=== PATIENT | male | born 1945 | race Caucasian/White ===

== ENCOUNTER 2017-12-17 12:54 | Inpatient (IN) | payer OTHER, MEDICARE ==
[~2017-12-17] VITALS: Ht 167.6 cm; Wt 93.9 kg
--- NOTE | 2017-12-17 15:34 | ED GI/GU/ABDOMINAL COMPLAINT ---
History of Present Illness General Chief Complaint: General Adult Stated Complaint: BLOOD IN STOOL Source: patient, family Exam Limitations: no limitations Vital Signs & Intake/Output Vital Signs & Intake/Output Vital Signs Date Time Temp Pulse Resp B/P B/P Pulse O2 O2 Flow FiO2 Mean Ox Delivery Rate 12/18 0647 98.1 70 18 158/82 96 Room Air 12/17 2147 98.2 69 20 146/60 97 Room Air 12/17 2111 70 20 126/72 97 12/17 1721 98.0 72 18 118/80 96 Room Air 12/17 1615 98 Room Air 12/17 1555 70 18 118/82 98 Room Air 12/17 1316 98.0 116 18 133/91 95 Room Air ED Intake and Output 12/18 0000 12/17 1200 Intake Total 100 Output Total Balance 100 Intake, Oral 100 Patient 200 lb Weight Weight Reported by Patient Measurement Method Triage Note: 72M REPORTS 3 EPISODES OF SOFT BM WITH BRB LAST NIGHT WITH HX OF EXTERNAL HEMERRHOIDS. DENIES KNOWLEDGE OF ANY INTERNAL HEMERRHOIDS. STATES NO BLOOD ASIDE FROM AT TIME OF DEFACATION. DENIES RECTAL OR ABDOMINAL PAIN OR NAUSEA. DENIES HEADACHE, DIZZINESS, LETHARGY, OR LIGHTHEADEDNESS. ORTHOS NEGATIVE IN TRIAGE Triage Nurses Notes Reviewed? yes HPI: 72 yo M PMH HTN, HLD presenting with bloody stools. Dark maroon and bright red blood mixed with loose stools starting last night, significant blood in toilet bowl x 4, last BM this morning around 10:00. Denies assocaited dizziness, chest pain, SOB, abdominal pain, N/V/C, urinary Sx. Patient states that he has a history of hemorrhoids with only mild bleeding on toilet paper, usually associated with rectal pain (which the patient does not endorse). (Veronica MCFARLANE,Robert) Allergies Coded Allergies: amoxicillin (Mild, RASH 12/18/17) Reconcile Medications Allopurinol 100 MG TABLET 1 TAB PO DAILY GOUT (Reported) Amlodipine Besylate 5 MG TABLET 1 TAB PO DAILY BP (Reported) Dutasteride 0.5 MG CAPSULE 1 CAP PO DAILY PROSTRATE (Reported) Metoprolol Succinate 50 MG TAB.ER.24H 1 TAB PO DAILY BP (Reported) Rosuvastatin Calcium (Crestor) 20 MG TABLET 1 TAB PO DAILY HLD (Reported) (Roque Godinez MD) Past History Travel History Traveled to [place] past 21 day No Medical History Any Pertinent Medical History? see below for history Neurological: NONE EENT: NONE Cardiovascular: hypertension, hyperlipidemia Respiratory: NONE Gastrointestinal: HEMERRHOIDS Hepatic: NONE Renal: NONE Musculoskeletal: NONE Psychiatric: NONE Endocrine: NONE Surgical History Surgical History: none Psychosocial History What is your primary language Guyanese Tobacco Use: Quit >30 days ago Daily Tobacco Use Amount/Type: =< 4 Cigarettes daily Family History Hx Contributory? Yes (Robert Martin MD) Review of Systems Review of Systems Constitutional: Reports: no symptoms. EENTM: Reports: no symptoms. Respiratory: Reports: no symptoms. Cardiovascular: Reports: no symptoms. GI: Reports: see HPI. Genitourinary: Reports: no symptoms. Musculoskeletal: Reports: no symptoms. Skin: Reports: no symptoms. Neurological/Psychological: Reports: no symptoms. Hematologic/Endocrine: Reports: no symptoms. Immunologic/Allergic: Reports: no symptoms. All Other Systems: Reviewed and Negative (Robert Martin MD) Physical Exam Physical Exam General Appearance: well developed/nourished, no apparent distress, alert, awake Head: atraumatic Eyes: Bilateral: PERRL, EOMI. Ears, Nose, Throat, Mouth: moist mucous membrane Neck: normal inspection, full range of motion Respiratory: normal breath sounds, lungs clear Cardiovascular: regular rate/rhythm Gastrointestinal: soft, non-tender Rectal: bloody stool Comments: AbdomenL: Soft and non-TTP throughout Rectal: Dark maroon guiaiac positive stool, no massess palpated in rectal vault Core Measures ACS in differential dx? No Sepsis Present: No Sepsis Focused Exam Completed? No (Robert Martin MD) Progress Differential Diagnosis: AAA, AMI, appendicitis, biliary colic, bowel obstruction , colon cancer, cholecystitis, diverticulitis, epididymitis, esophageal varices, gastritis, hepatitis, hernia, hemorrhoids, ischemic bowel, inflamm bowel dis, Peyton-Nathalia tear, orchitis, pancreatitis, prostatitis, peptic ulcer, PUD/GERD, perforated viscous, pyelonephritis, SBO, STD, testicular torsion, ureterolithiasis, urinary retention, urethritis, UTI/pyelo Plan of Care: Orders Procedure Date/time Status CBC WITHOUT DIFFERENTIAL 12/18 0600 Active Clear Liquid Diet 12/17 D Active Weight 05/05 2143 Active Vital Signs 12/17 2142 Active Teach/Educate 12/17 2142 Active Pain Treatment and Response 12/17 2142 Active Nutritional Intake, Monitor 12/17 2142 Active Isolation 12/17 2142 Active Intake & Output 12/17 2142 Active Patient Care Conference 12/17 2142 Active Activity/Ambulation 12/17 2142 Active Pathway - chart 12/17 2041 Active House Staff 12/17 2041 Active Patient Data 12/17 2041 Active Code Status 12/17 2041 Active Patient Data 12/17 2036 Active Saline Lock 12/17 2006 Active Misc Message 12/17 2006 Active ED Holding Orders 12/17 2006 Active Vital Signs 12/17 2006 Active Code Status 12/17 2006 Complete URINE CREATININE, SPOT 12/17 183 Complete Admit to inpatient 12/17 182 Active PROTHROMBIN TIME 12/17 153 Complete HEPATIC FUNCTION PANEL 12/17 153 Complete CBC WITHOUT DIFFERENTIAL 12/17 153 Complete BASIC METABOLIC PANEL 12/17 153 Complete EKG 12/17 153 Active TYPE & SCREEN (NOT X-MATCH) 12/17 153 Complete Intake & Output 12/17 1318 Active VTE Mechanical Prophylaxis 12/17 UNK Active Current Medications Sig/Digna Start time Last Medication Dose Stop Time Status Admin Allopurinol 100 MG DAILY 12/18 899 AC (Zyloprim) Amlodipine Besylate 5 MG DAILY 12/18 899 AC (Norvasc) Atorvastatin Calcium 40 MG DAILY 12/18 899 AC (Lipitor) Metoprolol Succinate 50 MG DAILY 12/18 899 AC (Toprol Xl) Sodium Chloride 1,000 ML Q13H 12/18 0030 AC 12/18 (Normal Saline 0.9%) 0051 Acetaminophen 325 MG Q6 PRN 12/17 2044 AC (Tylenol) Laboratory Tests 12/17/172036: Ur Random Creatinine 61.6 12/17/17 1550: Anion Gap 13, Estimated GFR > 60, BUN/Creatinine Ratio 17.8, Glucose 103 H, Calcium 8.9, Total Bilirubin 0.5, Direct Bilirubin 0.2, AST 19, ALT 31, Alkaline Phosphatase 64, Total Protein 6.7, Albumin 4.2, PT 11.8, INR 1.08, CBC w Diff NO MAN DIFF REQ, RBC 3.89 L, MCV 99.7 H, MCH 33.2 H, MCHC 33.3, RDW 15.1 H, MPV 6.6 L, Gran % 67.8, Lymphocytes % 24.8, Monocytes % 5.4, Eosinophils % 1.4, Basophils % 0.6, Absolute Granulocytes 4.3, Absolute Lymphocytes 1.6, Absolute Monocytes 0.3, Absolute Eosinophils 0.1, Absolute Basophils 0 Physician MDM: 72 yo M PMH HTN, HLD presenting with bloody stools. Tachycardic in triage to 110s, orthostatic (HR 120s with standing), HR 90s while laying in bed during exam, abdomen benign, rectal exam as above with dark maroon stool. DDx: Lower GIB (diverticulosis, AVM), Rectal bleeding (internal hemorrhoids), UGIB (PUD, no Hx concerning for varicies). Protonix 80 mg IV given. CBC with Hgb 12.9, unknown baseline. Given orthostasis and anemia with presumed active ongoing GIB, will admit for monitoring and serial Hgbs. I discussed the case with Dr. Redmond who feels that endoscopy is warranted (though not emergently), requested clear liquid diet, please contact him with any clincal instability or worsening bleeding. Admit to hospitalist. Initial ED EKG: NSR (Veronica MCFARLANE,Robert) Departure Departure Disposition: STILL A PATIENT Condition: Stable Clinical Impression Primary Impression: GIB (gastrointestinal bleeding) Referrals: Colten Rowland MD (PCP/Family) Departure Forms: Customer Survey General Discharge Information Admission Note Spoke With: Nadine Lanza MD Documentation of Exam: Documentation of any treatments & extenuating circumstances including Concerns Regarding Discharge (functional status, medication knowledge or non-compliance, living conditions, etc.) that warrant an admission rather than observation: [ Patient presents with multiple bloody bowel movements since yesterday evening with no history of GI bleeding or anticoagulation, the patient was found to be tachycardic and orthostatic, with anemia on his lab work, and ongoing GI bleeding based on his rectal exam, patient requires admission to the hospital for COPD hemoglobin's, close hemodynamic monitoring, gastroenterology consult, and possible endoscopy. If the patient were discharged without monitoring and further evaluation he has a high likelihood of progressive bleeding with anemia, cardiovascular collapse, and possibly .] (Robert Martin MD) Resident Co-Sign Statement Statement: ED Attending supervision documentation- I saw and evaluated the patient. I have also reviewed all the pertinent lab results and diagnostic results. I agree with the findings and the plan of care as documented in the Resident's documentation. x I have reviewed the ED Record and agree with the Resident's documentation. Additions or exceptions (if any) to the Resident's note and plan are summarized below: [] (Herbert MCFARLANE,Roque) ED Attending Observation Initial Observation Note: I have seen and personally examined SHARONDA WEISS on 12/17/17 at 1852. I agree with the current emergency department documentation. The disposition (admission or discharge) is uncertain at this time, he needs a period of observation for the following reason(s): The ED Nurse caring for this patient has been personally informed as to what the patient is being observed for. (Veronica MCFARLANE,Robert)
[2017-12-17 16:12] LABS: ABSOLUTE BASOPHIL COUNT 0 /CUMM (0.0-0.2); ABSOLUTE EOSINOPHIL COUNT 0.1 /CUMM (0.0-0.7); ABSOLUTE GRANULOCYTE CT 4.3 /CUMM (1.4-6.5); ABSOLUTE LYMPH COUNT 1.6 /CUMM (1.2-3.4); ABSOLUTE MONOCYTE COUNT 0.3 /CUMM (0.10-0.60); BASOPHIL % 0.6 % (0.0-2.0); EOSINOPHIL % 1.4 % (0-5); GRANULOCYTE % 67.8 % (42.2-75.2); HEMATOCRIT 38.8 % (42-52); MEAN CORPUSCULAR HGB 33.2 PG (27.0-31.0); MEAN CORPUSCULAR HGB CONC 33.3 G/DL (33.0-37.0); MEAN CORPUSCULAR VOLUME 99.7 FL (80.0-94.0); MEAN PLATELET VOLUME 6.6 FL (7.4-10.4); PLATELET COUNT 199 /CUMM (130-400); RBC DISTRIBUTION WIDTH 15.1 % (11.5-14.5); RED BLOOD CELL CT 3.89 /CUMM (4.70-6.10); WHITE BLOOD CELL COUNT 6.3 /CUMM (4.8-10.8)
[2017-12-17 16:20] LABS: PT 11.8 SEC (9.4-12.5)
--- NOTE | 2017-12-17 20:44 | History & Physical ---
Miryam Yeager 12/17/172034: General Information and HPI MD Statement: I have seen and personally examined SHARONDA WEISS and documented this H&P. The patient is a 72 year old M who presented with a patient stated chief complaint of [GI Bleed]. Source of Information: patient, old records Exam Limitations: no limitations History of Present Illness: Mr. Mcdonnell is a 72yo M w/ PMH of hypertension, hyperlipidemia, gout, dilated ascending aorta, presented with BRBPR. Patient started having dark maroon, and bright red blood mixed with loose stool starting last night, was positive history of external hemorrhoids, however denied any internal hemorrhoids history, with a total of 4 episodes of bloody bowel movements. Last bowel bowel movement was around 10 AM prior to this admission. Patient had never had any bright blood in his stool, and endorsed only once or twice a year painful defecation due to external hemorrhoids. Patient had last colonoscopy done 12 years ago without any remarkable findings. Patient stated that the first bowel movement was bright red blood was solid, and the next 3 become increasingly loose with more liquid, however denies any dark or tarry stool. Patient denies any sick contacts/fever/shortness of breath/lightheadedness/ abdominal pain/change of diet/outside foods or anyone around with similar symptoms. During our clinical interaction, patient denied Chest Pain/Palpitation/exercise intolerance/Abdominal pain/bowel movement/urinary abnormality, or other skin/ musculoskeletal/neurological disorders/mood change/insomnia/dietary/appetite change. -Smoking: Quit 8 years ago -Alcohol: Social alcohol use, with one episode of alcohol detox at [facility] in 2012. -Rec Drugs: Denies Allergies/Medications Home Med list Allopurinol 100 MG TABLET 1 TAB PO DAILY GOUT (Reported) Amlodipine Besylate 5 MG TABLET 1 TAB PO DAILY BP (Reported) Dutasteride 0.5 MG CAPSULE 1 CAP PO DAILY PROSTRATE (Reported) Metoprolol Succinate 50 MG TAB.ER.24H 1 TAB PO DAILY BP (Reported) Rosuvastatin Calcium (Crestor) 20 MG TABLET 1 TAB PO DAILY HLD (Reported) Past History Travel History Traveled to [place] past 21 day No Medical History Neurological: NONE EENT: NONE Cardiovascular: hypertension, hyperlipidemia Respiratory: NONE Gastrointestinal: HEMERRHOIDS Hepatic: NONE Renal: NONE Musculoskeletal: NONE Psychiatric: NONE Endocrine: NONE Surgical History Surgical History: none Past Family/Social History Functional Ability ADLs Independent: dressing, eating, toileting, bathing. Ambulation: independent IADLs Independent: shopping, housework, finances, food prep, telephone, transportation , medication admin. Review of Systems Review of Systems Constitutional: Reports: see HPI. Exam & Diagnostic Data Last 24 Hrs of Vital Signs/I&O Vital Signs Date Time Temp Pulse Resp B/P B/P Pulse O2 O2 Flow FiO2 Mean Ox Delivery Rate 12/17 2111 70 20 126/72 97 12/17 1721 98.0 72 18 118/80 96 Room Air 12/17 1615 98 Room Air 12/17 1555 70 18 118/82 98 Room Air 12/17 1316 98.0 116 18 133/91 95 Room Air Intake & Output 12/17 1600 12/17 0800 12/17 0000 Intake Total Output Total Balance Patient 90.718 kg Weight Weight Reported by Patient Measurement Method Physical Exam General Appearance Alert, Oriented X3, Cooperative, No Acute Distress Skin No Rashes, No Breakdown, No Significant Lesion Skin Temp/Moisture Exam: Warm/Dry Sepsis Skin Exam (color): Normal for Ethnicity HEENT Atraumatic Neck Supple Cardiovascular Regular Rate, Normal S1, Normal S2 Lungs Clear to Auscultation, Normal Air Movement Abdomen Normal Bowel Sounds, Soft, No Tenderness, No Hepatospenomegaly, possible umbilical hernia w/ portruding umbilicus Neurological Normal Gait, Normal Speech, Strength at 5/5 X4 Ext Extremities No Cyanosis, Normal Pulses, trace edema Rectal No Fissures, external hemorrhoids with no red blood. no tenderness during exam. guiac positive Last 24 Hrs of Labs/Jean: Laboratory Tests 12/17/172036: Ur Random Creatinine 61.6 12/17/17 1550: Anion Gap 13, Estimated GFR > 60, BUN/Creatinine Ratio 17.8, Glucose 103 H, Calcium 8.9, Total Bilirubin 0.5, Direct Bilirubin 0.2, AST 19, ALT 31, Alkaline Phosphatase 64, Total Protein 6.7, Albumin 4.2, PT 11.8, INR 1.08, CBC w Diff NO MAN DIFF REQ, RBC 3.89 L, MCV 99.7 H, MCH 33.2 H, MCHC 33.3, RDW 15.1 H, MPV 6.6 L, Gran % 67.8, Lymphocytes % 24.8, Monocytes % 5.4, Eosinophils % 1.4, Basophils % 0.6, Absolute Granulocytes 4.3, Absolute Lymphocytes 1.6, Absolute Monocytes 0.3, Absolute Eosinophils 0.1, Absolute Basophils 0 Diagnostic Data EKG Results NSR Assessment/Plan Assessment: On admission, Vitals: Stable afebrile, pulse 72, BP 108/80, 96% on room air, however orthostatic positive for increasing pulse when standing up. -CBC: No leukocytosis, H/H 12.9/48.8 dropped from 2013 baseline, PLT 199, PT/INR 11.8/1.08 -BMP: Unremarkable -EKG: NSR w/o significant ST-T abnormalities. -Interventions in ER: PPI 80 mg 1 Problem list & Assessment: Patient presented with BRBPR with PMH of external hemorrhoids, positive orthostatics, guaiac positive rectal exam, however, otherwise negative physical examination or complaining of fever/chills/Chest pain/ab pain/negative previous colonoscopy. #BRBPR secondary to hemorrhoids pending rule out other etiology #Orthostatic positive #Normacytic anemia likely from recent GI bleed #Umbilic hernia #PMH of hypertension, hyperlipidemia, dilated ascending aorta, gout Hospital Course: - Admit to general medicine floor bleeding. DVT prophylaxis ALPS Clear Liquid Diet with no red Full Code As Ranked By This Provider Problem List: 1. GIB (gastrointestinal bleeding) Core Measures/Misc (05/01) Acute Coronary Syndrome ACS Diagnosis: No Congestive Heart Failure Congestive Heart Failure Diagnosis No Cerebrovascular Accident CVA/TIA Diagnosis: No VTE (View Protocol) VTE Risk Factors Age>40 No Mechanical VTE Prophylaxis d/t N/A MechProphylax Ordered No VTE Pharm Prophylaxis d/t Bleeding (Active) Sepsis (View protocol) Sepsis Present: No Eren Irizarry 12/18/17 0059: General Information and HPI Allergies/Medications Allergies: Coded Allergies: amoxicillin (Mild, RASH 12/18/17) Resident Review Statement Resident Statement: examined this patient, discussed with business analytics intern Other Findings: Patient is 72-year-old male with past medical history of hypertension, hyperlipidemia, gout, dilated ascending to, who presented to the ER with a chief complaint of bright red blood per rectum. Patient reported that he started having some dark blood along with fresh bright red blood in stool since yesterday night. Had 4 episodes of bloody bowel movements. He has a history of external hemorrhoids. No previous history of bleeding in stools. Denies any chest pain, palpitations, nausea, vomiting, lightheadedness, dizziness or abdominal pain. Admits to having loose stools for the past few days. Denies any NSAID use, iron intake, food from outside, sick contacts or antibiotic use. Had a colonoscopy about 12 years ago which was unremarkable. He is an ex-smoker, social alcohol use, no drug abuse. Patient was tachycardic in the ED, orthostatic positive(heart rate 120 on standing) with dark guaiac-positive stools on rectal bleeding. Vitals in the ED at admission : Temperature 90.8, pulse 160, respiration 18, blood pressure 130/91, saturating 95% on room air Labs significant for H&H of 12.9/38.8(last 14.5 in 2012) No significant EKG changes Physical exam General: Awake, alert, oriented, no distress HEENT"PERRLA, EOMI Chest: Clear breath sounds bilaterally CVS: S1 and S2 heard, no murmurs Abdomen: Umbilical hernia, tense, no tenderness Extremities: Trace bilateral pedal edema Assessment Bright red blood per rectum? Hemorrhoids /diverticular bleed/AVM Rectal bleed likely hemorrhoids ?Upper GI bleed Acute blood loss anemia Orthostatic positive History of gout Hypertension/hyperlipidemia Dilated ascending aorta Plan Admit to [facility] Vitals per protocol 2 wide bore IVs at all times Frequent CBC's Type and screen, cross match Transfuse to keep hemoglobin above 7 IV hydration with normal saline at 75 cc an hour Clear liquid diet GI consult in a.m. case discussed with Dr. Redmond, who plans an endoscopy/ colonoscopy though not emergently. Notify GI stat if any further episodes of bleeding Continue other home medications Full code DVT prophylaxis Nadine Perez 12/18/17 0557: Attending MD Review Statement Attending Statement Attending MD Statement: examined this patient, discuss w/resident/PA/CODING EDUCATOR, agreed w/resident/PA/CODING EDUCATOR, reviewed EMR data (avail), reviewed images, amended to note Attending Assessment/Plan: CC: BRBPR PMH: HTN, HLD, gout, BPH Patient came to ER for 4 episodes of bright red blood per rectum, 3 episodes last night and one episode this morning. He could not quantify the blood as it was mixed with stool and was in the commode. He did not have any abdominal pain before the episode and did not have tenesmus. He did not feel dizzy or palpitation after the episodes. He has a history of external hemorrhoids and occasionally gets blood on wipes but this was different for him and never happened in the past. His last colonoscopy was 12 year back, unaware of findings. Otherwise complete ROS unremarkable. No significant family history of colon cancer Vitals: Temperature 98.0, pulse 116 on arrival improved to 70, RR 18, blood pressure 133/91, saturation 95% on room air. Orthostatics positive for tachycardia only On exam: A O 3, cooperative, no acute distress, neck supple, JVD normal, no lymphadenopathy, mucosa moist, no focal neurological deficit, no dependent edema , no obvious skin rashes or inflammation CVS: S1-S2, RRR. RS: Clear to auscultate bilaterally. Abdomen: Soft, NT, ND, bowel sounds present. Assessment and plan 72-year-old male with above-mentioned past medical history presented in ER for bright red blood per rectum, 4 episodes, not associated with pain, 2 of the bowel movements were watery but does not have any nausea, vomiting, tenesmus. Never had similar symptoms in the past. He has hemorrhoids and occasionally gets a blood on wipes but never had similar symptoms in the past. Last colonoscopy 12 year back. Denies any NSAID use, anticoagulation use. His hemoglobin is 12.9, MCV 99, baseline not known. Otherwise labs unremarkable. This could be hemorrhoidal bleeding but at the same time diverticular bleeding or any polyps should be ruled out. Rectal examination done by ER physician showed melena and done by resident showed FOBT positive but no melena. Lay Out Technician was called who suggested clears for now, they will evaluate for colonoscopy in a.m. patient wants to go home and schedule colonoscopy outpatient if it's not urgently required. + BRBPR + History of HTN, HLD, gout, BPH - Admit to general medicine - Continue gentle hydration - Continue clear liquids - Continue IV Protonix twice a day - GI consult in a.m., call GI immediately if patient has any bloody bowel movement while in hospital - Type and screen 2 units PRBC - 2 wide bore peripheral IV lines - Repeat CBC and BMP in a.m. - Hold oral antihypertensives, continue rest of his medications, hold aspirin for now
[2017-12-17] MEDS ORDERED: AMLODIPINE BESYL5 M1 PO (20:55)
[2017-12-17] MEDS ORDERED: ALLOPURINOL100 M1 PO (20:55)
[2017-12-17] MEDS ORDERED: METOPROLOL SUCC50 M2 PO (20:56)
[2017-12-17] MEDS ORDERED: CRESTOR20 M2 PO (20:56)
[2017-12-17] MEDS ORDERED: DUTASTERIDE0.5 MG PO (20:59)
[2017-12-17 21:47] VITALS: BP 146/60
--- NOTE | 2017-12-18 05:58 | Admission Certification ---
Admission Certification Certification Statement - As attending physician, I certify that at the time of - admission, based on clinical presentation, severity of - symptoms, need for further diagnostic testing and - therapeutic interventions, and risk of adverse outcomes - without in-hospital treatment, in my clinical assessment, - this patient requires an acute hospital stay for a minimum - of two nights or longer. I have also considered psychsocial - factors such as support system, advanced age, financial - issues, cognitive issues, and failed out-patient treatments, - past re-admission history, safety of patient, and lack of - compliance as applicable. Specific rationale supporting this admission is: BRBPR
[2017-12-18 06:47] VITALS: BP 158/82
[2017-12-18 08:57] LABS: ABSOLUTE BASOPHIL COUNT 0 /CUMM (0.0-0.2); ABSOLUTE EOSINOPHIL COUNT 0.1 /CUMM (0.0-0.7); ABSOLUTE LYMPH COUNT 1.1 /CUMM (1.2-3.4); ABSOLUTE MONOCYTE COUNT 0.3 /CUMM (0.10-0.60)
[2017-12-18 09:09] LABS: ABSOLUTE GRANULOCYTE CT 1.6 /CUMM (1.4-6.5); BASOPHIL % 0.6 % (0.0-2.0); EOSINOPHIL % 3.5 % (0-5); GRANULOCYTE % 52.7 % (42.2-75.2); MEAN CORPUSCULAR HGB 33.5 PG (27.0-31.0); MEAN CORPUSCULAR HGB CONC 33.9 G/DL (33.0-37.0); MEAN CORPUSCULAR VOLUME 98.8 FL (80.0-94.0); MEAN PLATELET VOLUME 6.8 FL (7.4-10.4); PLATELET COUNT 152 /CUMM (130-400); RED BLOOD CELL CT 3.42 /CUMM (4.70-6.10)
[2017-12-18 09:18] LABS: HEMATOCRIT 33.8 % (42-52); WHITE BLOOD CELL COUNT 3.1 /CUMM (4.8-10.8)
--- NOTE | 2017-12-18 11:40 | PN- Housestaff ---
[facility]: Subjective Follow-up For: Bleeding per rectum Subjective: No overnight events. Patient remained afebrile. Seen and examined this morning. He denied any chest pain, palpitation, nausea, vomiting, chills, fever , short of breath, abdominal pain. Patient didn't have bowel movement this morning. He is having clear liquid diet and he is tolerating it. We will keep patient nothing by mouth for tomorrow for colonoscopy. Review of Systems Constitutional: Denies: chills, fever. EENTM: Reports: no symptoms. Cardiovascular: Denies: chest pain, palpitations. Respiratory: Denies: cough, short of breath, sputum production. Gastrointestinal: Denies: abdominal pain, diarrhea, melena, nausea, vomiting. Genitourinary: Reports: no symptoms. Neurological/Psychological: Reports: no symptoms. Objective Last 24 Hrs of Vital Signs/I&O Vital Signs Date Time Temp Pulse Resp B/P B/P Pulse O2 O2 Flow FiO2 Mean Ox Delivery Rate 12/18 0647 98.1 70 18 158/82 96 Room Air 12/17 2147 98.2 69 20 146/60 97 Room Air / 2111 70 20 126/72 97 05/05 1721 98.0 72 18 118/80 96 Room Air 05/ 1615 98 Room Air 05/ 1555 70 18 118/82 98 Room Air 05/05 1316 98.0 116 18 133/91 95 Room Air Intake & Output / 1600 05/06 0800 05/06 0000 Intake Total 700 100 Output Total Balance 700 100 Intake, IV 400 Intake, Oral 300 100 Patient 199 lb 200 lb Weight Weight Bed scale Reported by Patient Measurement Method Physical Exam General Appearance: Alert, Oriented X3, Cooperative Skin Temp/Moisture Exam: Warm/Dry Sepsis Skin Exam (color): Normal for Ethnicity HEENT: Atraumatic, PERRLA, EOMI Neck: Supple Cardiovascular: Normal S1, Normal S2 Lungs: Clear to Auscultation Abdomen: Soft, No Tenderness Neurological: Normal Speech, Strength at 5/5 X4 Ext, Normal Tone Extremities: No Edema Assessment/Plan Assessment: 72-year-old male with past medical history of hypertension, hyperlipidemia, gout , dilated ascending to, who presented to the ER with a chief complaint of bright red blood per rectum. seeing the patient following problems: Fresh blood per rectum: -Patient had 4 episodes of bleeding per rectum without pain. -Patient is hemodynamically stable. -His H&H is 11.5/33.8 -We will keep monitoring his H&H -Patient started to have bleeding again we will give him blood transfusion and call GI. -Continue gentle IV hydration as patient was having positive orthostatics. -We'll keep the patient nothing by mouth midnight for colonoscopy tomorrow -Follow-up GI recommendations History of hypertension hyperlipidemia: -Continue metoprolol and amlodipine -Continue Lipitor History of Gout: -Continue allopurinol DVT prophylaxis: Mechanical only considering his bleeding per rectum CODE STATUS: Full code Problem List: 1. GIB (gastrointestinal bleeding) Pain Ratin Pain Location: none Pain Goal: Remain pain free Pain Plan: pain pathway Tomorrow's Labs & Rationales: cbc/bep ReaganMelody johnson 12/18/17 1331: Attending MD Review Statement Attending Statement Attending MD Statement: examined this patient, discuss w/resident/PA/BRASS BURNISHER, agreed w/resident/PA/BRASS BURNISHER, discussed with family, reviewed EMR data (avail), discussed with nursing, discussed with case mgmt, reviewed images, amended to note Attending Assessment/Plan: Admit for GI bleed BRBPR, clear liquid diet as per GI. Plan for colonscopy tomorrow as per GI. Serial cbc monitoirng, iv ppi, gi/dvt prophylaxis
[2017-12-18 15:19] VITALS: BP 122/70
--- NOTE | 2017-12-18 15:54 | Cons- Gastroenterology ---
General Information and HPI Consulting Request Date of Consult: 12/18/17 (MD AGUS/GASTROENTEROLOGY) Requested By: Nadine Lanza MD Reason for Consult: Hematochezia Source of Information: patient History of Present Illness: The patient has no significant GI history or chronic/recurrent symptoms. Specifically, there is no previous GI bleed (aside for some blood occasionally on toilet paper attributed to hemorrhoids), chronic abdominal pain, dyspepsia, nausea, heartburn. His bowel habits are regular and without recent change. He takes a baby aspirin a day, but no NSAIDs, anticoagulants or other antiplatelet agents. He had a screening colonoscopy in 2003, demonstrating sigmoid diverticulosis and no polyps. No known family history of GI malignancy. The night before last the patient had 3 bloody bowel movements. He had a fourth smaller one yesterday morning. Since that time he has passed gas but no bowel movement or blood. There has been no pain, nausea, vomiting, diaphoresis, dizziness, lightheadedness, syncope, shortness of breath or chest pain. Allergies/Medications Allergies: Coded Allergies: amoxicillin (Mild, RASH 12/18/17) Home Med List: Allopurinol 100 MG TABLET 1 TAB PO DAILY GOUT (Reported) Amlodipine Besylate 5 MG TABLET 1 TAB PO DAILY BP (Reported) Dutasteride 0.5 MG CAPSULE 1 CAP PO DAILY PROSTRATE (Reported) Metoprolol Succinate 50 MG TAB.ER.24H 1 TAB PO DAILY BP (Reported) Rosuvastatin Calcium (Crestor) 20 MG TABLET 1 TAB PO DAILY HLD (Reported) Current Medications: Current Medications Sig/Digna Start time Last Medication Dose Route Stop Time Status Admin Acetaminophen 325 MG Q6 PRN 12/17 2045 AC PO Allopurinol 100 MG DAILY 12/18 899 AC 12/18 PO 0829 Amlodipine Besylate 5 MG DAILY 12/18 899 AC 12/18 PO 0830 Atorvastatin Calcium 40 MG DAILY 12/18 899 AC 12/18 PO 0830 Metoprolol Succinate 50 MG DAILY 12/18 899 AC 12/18 PO 0830 Pantoprazole Sodium 0 .STK-MED ONE 12/17 1625 DC IV Pantoprazole Sodium 80 MG ONCE ONE 12/17 1615 DC 12/17 IV 12/17 1616 1623 Polyethylene Glycol 1 GAL ONCE ONE 12/18 1245 DC 12/18 PO 12/18 1246 1414 Sodium Chloride 1,000 ML Q13H 12/18 0030 AC 12/18 IV 1414 Past History Travel History Traveled to [place] past 21 day No Medical History Blood Transfusion Hx: No Neurological: NONE EENT: NONE Cardiovascular: hypertension, hyperlipidemia Respiratory: NONE Gastrointestinal: HEMERRHOIDS Hepatic: NONE Renal: NONE Musculoskeletal: NONE Psychiatric: NONE Endocrine: NONE Blood Disorders: NONE Cancer(s): 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 Home Smoking Status: Former Smoker Functional Ability ADLs Independent: dressing, eating, toileting, bathing. Ambulation: independent IADLs Independent: shopping, housework, finances, food prep, telephone, transportation , medication admin. Review of Systems Review of Systems Constitutional: Denies: chills, fever, unexplained weight loss. EENTM: Denies: icterus, epistaxis. Cardiovascular: Denies: chest pain, edema, syncope. Respiratory: Denies: cough, hemoptysis, short of breath. GI: Reports: see HPI. Genitourinary: Denies: dysuria, hematuria. Musculoskeletal: Denies: muscle stiffness, neck pain. Skin: Denies: jaundice, lesions. Neurological/Psychological: Denies: cognitive dysfunction, headache. Hematologic/Endocrine: Reports: bleeding. Denies: bruising. Exam & Diagnostic Data Vital Signs and I&O Vital Signs Date Time Temp Pulse Resp B/P B/P Pulse O2 O2 Flow FiO2 Mean Ox Delivery Rate 12/18 1519 97.8 61 20 122/70 93 12/18 0647 98.1 70 18 158/82 96 Room Air 12/17 2147 98.2 69 20 146/60 97 Room Air 12/17 2111 70 20 126/72 97 12/17 1721 98.0 72 18 118/80 96 Room Air 12/17 1615 98 Room Air 12/17 1555 70 18 118/82 98 Room Air Intake & Output 12/18 1600 12/18 0400 12/17 1600 12/17 0400 12/16 1600 12/16 0400 Intake Total 2500 100 Output Total Balance 2500 100 Intake, IV 1000 Intake, Oral 1500 100 Patient 199 lb 200 lb 200 lb Weight Weight Bed scale Reported by Patient Reported by Patient Measurement Method Physical Exam: Well-developed well-nourished, in no apparent distress. Alert and oriented with normal cognition. Skin normal without rash, jaundice, stigmata of chronic liver disease, petechia, purpura, ecchymoses. No adenopathy. Sclera anicteric. No oropharyngeal lesions. Neck supple without thyromegaly or mass. Heart regular rhythm. Lungs clear. Abdomen mildly obese, soft, nondistended, hyperactive bowel sounds; no tenderness, mass, organomegaly; small reducible umbilical hernia. Extremities without clubbing, cyanosis or edema; pulses intact distally. Results Pertinent Lab Results: Laboratory Tests 12/18 12/17 0740 2037 Hematology CBC w Diff NO MAN DIFF REQ WBC (4.8 - 10.8 /CUMM) 3.1 L RBC (4.70 - 6.10 /CUMM) 3.42 L Hgb (14.0 - 18.0 G/DL) 11.5 L Hct (42 - 52 %) 33.8 L MCV (80.0 - 94.0 FL) 98.8 H MCH (27.0 - 31.0 PG) 33.5 H MCHC (33.0 - 37.0 G/DL) 33.9 RDW (11.5 - 14.5 %) 15.0 H Plt Count (130 - 400 /CUMM) 152 MPV (7.4 - 10.4 FL) 6.8 L Gran % (42.2 - 75.2 %) 52.7 Lymphocytes % (20.5 - 51.1 %) 35.2 Monocytes % (1.7 - 9.3 %) 8.0 Eosinophils % (0 - 5 %) 3.5 Basophils % (0.0 - 2.0 %) 0.6 Absolute Granulocytes (1.4 - 6.5 /CUMM) 1.6 Absolute Lymphocytes (1.2 - 3.4 /CUMM) 1.1 L Absolute Monocytes (0.10 - 0.60 /CUMM) 0.3 Absolute Eosinophils (0.0 - 0.7 /CUMM) 0.1 Absolute Basophils (0.0 - 0.2 /CUMM) 0 Urines Ur Random Creatinine (mg/dL) 61.6 12/17 1550 Chemistry Sodium (137 - 145 mmol/L) 141 Potassium (3.5 - 5.1 mmol/L) 4.2 Chloride (98 - 107 mmol/L) 106 Carbon Dioxide (22 - 30 mmol/L) 22 Anion Gap (5 - 16) 13 BUN (9 - 20 mg/dL) 16 Creatinine (0.7 - 1.2 mg/dL) 0.9 Estimated GFR (>60 ml/min) > 60 BUN/Creatinine Ratio (7 - 25 %) 17.8 Glucose (65 - 99 mg/dL) 103 H Calcium (8.4 - 10.2 mg/dL) 8.9 Total Bilirubin (0.2 - 1.3 mg/dL) 0.5 Direct Bilirubin (< 0.4 mg/dL) 0.2 AST (17 - 59 U/L) 19 ALT (21 - 72 U/L) 31 Alkaline Phosphatase (< 127 U/L) 64 Total Protein (6.3 - 8.2 g/dL) 6.7 Albumin (3.5 - 5.0 g/dL) 4.2 Coagulation PT (9.4 - 12.5 SEC) 11.8 INR (0.90 - 1.17) 1.08 Hematology CBC w Diff NO MAN DIFF REQ WBC (4.8 - 10.8 /CUMM) 6.3 RBC (4.70 - 6.10 /CUMM) 3.89 L Hgb (14.0 - 18.0 G/DL) 12.9 L Hct (42 - 52 %) 38.8 L MCV (80.0 - 94.0 FL) 99.7 H MCH (27.0 - 31.0 PG) 33.2 H MCHC (33.0 - 37.0 G/DL) 33.3 RDW (11.5 - 14.5 %) 15.1 H Plt Count (130 - 400 /CUMM) 199 MPV (7.4 - 10.4 FL) 6.6 L Gran % (42.2 - 75.2 %) 67.8 Lymphocytes % (20.5 - 51.1 %) 24.8 Monocytes % (1.7 - 9.3 %) 5.4 Eosinophils % (0 - 5 %) 1.4 Basophils % (0.0 - 2.0 %) 0.6 Absolute Granulocytes (1.4 - 6.5 /CUMM) 4.3 Absolute Lymphocytes (1.2 - 3.4 /CUMM) 1.6 Absolute Monocytes (0.10 - 0.60 /CUMM) 0.3 Absolute Eosinophils (0.0 - 0.7 /CUMM) 0.1 Absolute Basophils (0.0 - 0.2 /CUMM) 0 Assessment/Plan Assessment/Recommendations: Hematochezia, resolved. Minor drop in hematocrit. Vital signs stable ( initially with postural tachycardia). Etiology likely diverticular. Recommendations * Continue clear liquid diet; nothing by mouth after midnight * Colonoscopy tomorrow. GoLYTELY preparation today. * Follow-up CBC in the morning. * Please call GI with recurrent hematochezia, tachycardia, hypotension, or other evidence of ongoing/significant GI bleed. Copies To: Janett MCFARLANE,Colten Rasmussen Consult Acknowledgment - Thank you for your consult request.
[2017-12-18 22:21] VITALS: BP 130/80
[2017-12-19 06:23] VITALS: BP 124/82
--- NOTE | 2017-12-19 07:12 | PN- Housestaff ---
[facility]: Subjective Follow-up For: Bleeding per rectum Subjective: No overnight events. Patient remained afebrile. Patient seen and examined this morning. He denied any chest pain, short of breath, nausea, vomiting, chills, fever, abdominal pain and dysuria. He is nothing by mouth and going from colonoscopy today. He reported having small bloody bowel movements but later on it becomes clear after GoLYTELY. Review of Systems Constitutional: Denies: chills, fever. EENTM: Reports: no symptoms. Cardiovascular: Denies: chest pain, palpitations. Respiratory: Denies: cough, short of breath, sputum production. Gastrointestinal: Denies: abdominal pain, constipation, melena, nausea. Genitourinary: Reports: no symptoms. Neurological/Psychological: Reports: no symptoms. Objective Last 24 Hrs of Vital Signs/I&O Vital Signs Date Time Temp Pulse Resp B/P B/P Pulse O2 O2 Flow FiO2 Mean Ox Delivery Rate 12/19 0623 98.0 80 18 124/82 95 Room Air 12/18 2221 98.3 69 19 130/80 94 Room Air 12/18 1519 97.8 61 20 122/70 93 Intake & Output 12/19 1600 12/19 0800 05/ 0000 Intake Total 2600 2300 Output Total Balance 2600 2300 Intake, IV 600 300 Intake, Oral 1999 1999 Patient 207 lb Weight Physical Exam General Appearance: Alert, Oriented X3, Cooperative Skin Temp/Moisture Exam: Warm/Dry Sepsis Skin Exam (color): Normal for Ethnicity HEENT: Atraumatic, PERRLA, EOMI Neck: Supple Cardiovascular: Normal S1, Normal S2 Lungs: Clear to Auscultation Abdomen: Soft, No Tenderness Neurological: Normal Speech, Strength at 5/5 X4 Ext, Normal Tone Extremities: No Edema Assessment/Plan Assessment: 72-year-old male with past medical history of hypertension, hyperlipidemia, gout , dilated ascending to, who presented to the ER with a chief complaint of bright red blood per rectum. seeing the patient following problems: Fresh blood per rectum: -Patient had 4 episodes of bleeding per rectum without pain. -Patient is hemodynamically stable. -We will keep monitoring his H&H -Patient started to have bleeding again we will give him blood transfusion and call GI. -Continue gentle IV hydration as patient was having positive orthostatics. -NPO going for colonoscopy today. -Follow-up GI recommendations History of hypertension hyperlipidemia: -Continue metoprolol and amlodipine -Continue Lipitor History of Gout: -Continue allopurinol DVT prophylaxis: Mechanical only considering his bleeding per rectum CODE STATUS: Full code Problem List: 1. GIB (gastrointestinal bleeding) Pain Ratin Pain Location: none Pain Goal: Remain pain free Pain Plan: pain pathway Tomorrow's Labs & Rationales: sisi Benitez MD,Will 12/19/17 1206: Attending MD Review Statement Attending Statement Attending MD Statement: examined this patient, discuss w/resident/PA/MARKETING AND COMMUNICATIONS OFFICER, agreed w/resident/PA/MARKETING AND COMMUNICATIONS OFFICER, reviewed EMR data (avail), discussed with nursing, discussed with case mgmt, amended to note Attending Assessment/Plan: Patient seen and examined. Very friendly gentleman resting comfortably not in any acute distress. He is anxious to have a meal. Reports bloody bowel movements initially during bowel prep which cleared up by the end of the prep. He did have a slight downward trend of his hemoglobin level this morning. He fortunately remains hemodynamically stable. He has no symptoms of profound blood loss. Is scheduled to undergo colonoscopy later on today. We will reevaluate his hemoglobin level in a.m. and follow-up results of the colonoscopy. Further disposition will be determined by these results.
[2017-12-19 08:57] LABS: ABSOLUTE BASOPHIL COUNT 0 /CUMM (0.0-0.2); ABSOLUTE EOSINOPHIL COUNT 0.1 /CUMM (0.0-0.7); ABSOLUTE GRANULOCYTE CT 1.5 /CUMM (1.4-6.5); ABSOLUTE MONOCYTE COUNT 0.3 /CUMM (0.10-0.60); BASOPHIL % 0.6 % (0.0-2.0); GRANULOCYTE % 51.8 % (42.2-75.2); HEMATOCRIT 30.9 % (42-52); MEAN CORPUSCULAR HGB 33.7 PG (27.0-31.0); MEAN CORPUSCULAR HGB CONC 34.1 G/DL (33.0-37.0); MEAN CORPUSCULAR VOLUME 98.7 FL (80.0-94.0); MEAN PLATELET VOLUME 6.7 FL (7.4-10.4); PLATELET COUNT 153 /CUMM (130-400); RBC DISTRIBUTION WIDTH 14.8 % (11.5-14.5); RED BLOOD CELL CT 3.13 /CUMM (4.70-6.10); WHITE BLOOD CELL COUNT 2.9 /CUMM (4.8-10.8)
--- NOTE | 2017-12-19 13:27 | Proc Note Colonoscopy ---
See Addendum Colonoscopy Procedure Procedure Date: 12/19/17 Procedure Type: colonoscopy w/biopsy [employer] Operator: Jonel Redmond M.D. ASA Classification: II Indications: Lower GI bleed Instrument (Colonoscope): single channel Meds Received: MAC Patient's Tolerance: good Complications: none Extent Reached: cecum Prep: fairly good Procedure: The patient signed informed consent, was placed in the Myers position, and medicated. Examination of the rectum revealed external hemorrhoids. The Olympus high-definition variable stiffness colonoscope was inserted through the anus and advanced to the cecum, identified by the appendiceal orifice and ileocecal valve. Retroflexion was performed in order to examine the rectum. Careful examination was performed. There was adequate withdrawal time. Findings: There were mildly enlarged internal hemorrhoids. The rectum was normal. There was diverticulosis extending from sigmoid to right colon. In the right colon was a diminutive polyp resected with 2 bites of the cold biopsy forceps. The cecum was normal. There was fresh red blood in the mid transverse colon between 50 and 60 cm. This area was washed aggressively. There was no reaccumulation of blood, and no red blood within any diverticula. One diverticulum had clot, which was evacuated (washed and suctioned), without evident bleeding. The area was watched for several more minutes, and there was no evident bleeding. Of note there was brown stool in the right colon. Impression: * Diverticulosis * Fresh blood within the transverse colon * Diminutive polyp Recommendations: * Await pathology * Regular diet * Optimally, with keep in-house for 1 more day, watch for recurrent bleeding, and monitor CBC. Followup Colonscopy Screen In: pending biopsy result(s) CC: Janett MCFARLANE,Colten Rasmussen
[2017-12-19 15:02] VITALS: BP 136/90
--- NOTE | 2017-12-19 15:15 | Discharge Summary ---
Visit Information Visit Dates Admission Date: 12/17/17 Discharge Date: 12/20/17 Hospital Course Course Attending Physician: Will Benitez MD Primary Care Physician: Colten Rowland MD Hospital Course: 72-year-old male with past medical history of hypertension, hyperlipidemia, gout , BPH, dilated ascending to, who presented to the ER with a chief complaint of bright red blood per rectum. ED course: Vitals: Temperature 98.0, pulse 116, respiratory rate 18, blood pressure 133/91, oxygen saturation 95% on room air Labs: WBC count 6.3, hemoglobin 12.9, hematocrit 38.8, platelet count 199, sodium 141, potassium 4.2, BUN 16, creatinine 0.9, glucose 103, BUN/creatinine ratio 17.8, calcium 8.9, AST 19, ALT 31 Fresh blood per rectum s/p colonoscopy: Patient presented with fresh blood per rectum, 4 episodes before he came to the hospital. Gentle IV hydration was started. Patient was hemodynamically stable. Two IV lines were maintained just in case if he started to having heavy bleeding per rectum. His stool guaiac test was positive. GI consult was obtained and recommendations were followed. Patient was kept on clear liquid diet initially and later on he was kept nothing by mouth for colonoscopy. Patient's H&H was monitored although initially dropped from 12.9 to 10.5 by later on it remained stable at 11.3. Direct endoscopic patient was found to have diverticula extending from sigmoid to the right colon. Patient also having clot in diverticula that was evacuated and there was no evidence of active bleeding. There was one polyp that was resected and biopsies was sent. Patient remained asymptomatic after colonoscopy and his H&H remained stable. Patient was hemodynamically stable without any further bloody bowel movements. Patient was discharged and he was instructed to follow his security attendant for biopsy results and further recommendations. History of hypertension hyperlipidemia: Initially on admission his antihypertensive medications were held but as he remained hemodynamically stable without further bloody bowel movements, his antihypertensive medications were resumed. We continued his Lipitor. Patient was on aspirin and initially patient was told to hold it, patient reported that he is taking aspirin [id number] that's why we can't see in his reconcile meds. Patient was instructed not to take aspirin until seeing gastroenterology considering recent biopsy taken due to polyp in colon. History of Gout: Continued allopurinol History of BPH: Patient was on dutasteride for BPH. Patient was given nonformulary dutasteride during hospital stay. After the discharge his medication was continued. DVT prophylaxis: Mechanical only considering his bleeding per rectum CODE STATUS: Full code Allergies: Coded Allergies: amoxicillin (Mild, RASH 12/18/17) Significant Procedures: Procedure Date: 12/19/17 Procedure Type: colonoscopy w/biopsy [employer] Assistant: Jonel Redmond M.D. ASA Classification: II Indications: Lower GI bleed Instrument (Colonoscope): single channel Meds Received: MAC Patient's Tolerance: good Complications: none Extent Reached: cecum Prep: fairly good Procedure: The patient signed informed consent, was placed in the Myers position, and medicated. Examination of the rectum revealed external hemorrhoids. The Olympus high-definition variable stiffness colonoscope was inserted through the anus and advanced to the cecum, identified by the appendiceal orifice and ileocecal valve. Retroflexion was performed in order to examine the rectum. Careful examination was performed. There was adequate withdrawal time. Findings: There were mildly enlarged internal hemorrhoids. The rectum was normal. There was diverticulosis extending from sigmoid to right colon. In the right colon was a diminutive polyp resected with 2 bites of the cold biopsy forceps. The cecum was normal. There was fresh red blood in the mid transverse colon between 50 and 60 cm. This area was washed aggressively. There was no reaccumulation of blood, and no red blood within any diverticula. One diverticulum had clot, which was evacuated (washed and suctioned), without evident bleeding. The area was watched for several more minutes, and there was no evident bleeding. Of note there was brown stool in the right colon. Impression: Diverticulosis Fresh blood within the transverse colon Diminutive polyp Recommendations: Await pathology Regular diet Optimally, with keep in-house for 1 more day, watch for recurrent bleeding, and monitor CBC. Followup Colonscopy Screen In: pending biopsy result(s) CC: Janett MCFARLANE,Colten Rasmussen Pertinent Lab Results: WBC count 5.5, hemoglobin 11.3, hematocrit 32.2, platelet count 193, sodium 143, potassium 3.9, BUN 10, creatinine 0.9, glucose 103, INR 1.08 Disposition Summary Disposition Principal Diagnosis: Fresh blood per rectum from diverticulosis. Additional Diagnosis: History of hypertension and hyperlipidemia History of BPH Discharge Disposition: home or self care Discharge Instructions General Discharge Information Code Status: Full Code Patient's Diet: Regular diet Patient's Activity: Self-limited Follow-Up Instructions/Appts: Follow-up with your primary care physician in one week. Follow-up with gastroenterology in 1 week for biopsy results. Follow up with your insurance plan specialist. Medications at Discharge Discharge Medications: Continue taking these medications: Amlodipine Besylate (Amlodipine Besylate) 5 MG TABLET 1 Tablet ORAL DAILY Comments: Last Taken:12/20/17 Time:9AM Allopurinol (Allopurinol) 100 MG TABLET 1 Tablet ORAL DAILY Comments: Last Taken:12/20/17 Time:9AM Metoprolol Succinate (Metoprolol Succinate) 50 MG TAB.ER.24H 1 Tablet ORAL DAILY Comments: Last Taken:12/20/17 Time:9AM Rosuvastatin Calcium (Crestor) 20 MG TABLET 1 Tablet ORAL DAILY Comments: NOT GIVEN Dutasteride (Avodart) 0.5 MG CAPSULE 1 Capsule ORAL DAILY Qty = 30 Comments: Copies To: Jasen MCFARLANE,Venkatesh Law; Janett MCFARLANE,Colten Rasmussen; Ruy MCFARLANE,Jonel Miller Attending MD Review Statement Documenting Attending: Will Benitez MD Other Findings: Discharged in stable condition.
--- NOTE | 2017-12-19 15:15 | Patient Discharge Instructions ---
Discharge Instructions General Discharge Information You were seen/treated for: Bleeding per rectum s/p colonoscopy Diverticulosis bleeding. Watch for these problems: Bleeding per rectum, shortness of breath, chest pain, nausea, vomiting, abdominal pain and light headedness. If you experience any of these symptoms please come to ED or call to your pcp. Special Instructions: Follow up with your PCP in one week. Follow up with gastroenterology in one week for biopsy results. Don't take over the counter aspirin until you see gastroenterology. Diet Recommended Diet: Regular Activity Activity Self Limited: Yes Acute Coronary Syndrome Inclusion Criteria At DC or during hospital stay patient has or had the following: ACS DIAGNOSIS No Discharge Core Measures Meds if any: Prescribed or Continued at Discharge Meds if any: NOT Prescribed or Continued at Discharge Congestive Heart Failure Inclusion Criteria At DC or during hospital stay patient has or had the following: CHF DIAGNOSIS No Discharge Core Measures Meds if any: Prescribed or Continued at Discharge Meds if any: NOT Prescribed or Continued at Discharge Cerebrovascular accident Inclusion Criteria At DC or during hospital stay patient has or had the following: CVA/TIA Diagnosis No Discharge Core Measures Meds if any: Prescribed or Continued at Discharge Meds if any: NOT Prescribed or Continued at Discharge Venous thromboembolism Inclusion Criteria VTE Diagnosis No VTE Type NONE VTE Confirmed by (Test) NONE Discharge Core Measures - Per Current guidelines, there needs to be overlap - treatment for the first 5 days of Warfarin therapy. - If discharged on Warfarin prior to 5 days of - overlap therapy, the patient will need to be - assessed for post discharge needs including - *Post discharge parental anticoagulation - *Warfarin and/or parental anticoagulation education - *Follow up date to check INR post discharge At least 5 days overlap therapy as Inpatient No Meds if any: Prescribed or Continued at Discharge Note: Overlap Therapy is Warfarin and Anticoagulant Meds if any: NOT Prescribed or Continued at Discharge
[2017-12-19 22:07] VITALS: BP 120/76
[2017-12-20 06:38] VITALS: BP 118/80
--- NOTE | 2017-12-20 07:24 | PN- Housestaff ---
[facility] Subjective Follow-up For: Lower GI bleed s/p colonoscopy Subjective: No overnight events. Patient remained afebrile. seen and examined this morning. He denied any chest pain, palpitation, nausea, vomiting, chills, fever , abdominal pain dysuria. Patient reported that his bowel movements are normal and there is no blood in the stool. Review of Systems Constitutional: Denies: chills, fever. EENTM: Reports: no symptoms. Cardiovascular: Denies: chest pain, palpitations. Respiratory: Denies: cough, short of breath, sputum production. Gastrointestinal: Denies: abdominal pain, diarrhea, nausea, vomiting. Genitourinary: Reports: no symptoms. Neurological/Psychological: Reports: no symptoms. Objective Last 24 Hrs of Vital Signs/I&O Vital Signs Date Time Temp Pulse Resp B/P B/P Pulse O2 O2 Flow FiO2 Mean Ox Delivery Rate 12/20 0755 98.1 82 18 118/80 12/20 0755 98.1 82 18 118/80 / 0638 98.1 82 18 118/80 96 Room Air 05/08 0000 95 Room Air / 2207 98.5 78 18 120/76 95 Room Air / 1502 97.9 70 20 136/90 95 Room Air Intake & Output 12/20 1600 08 0800 /08 0000 Intake Total 600 Output Total Balance 600 Intake, Oral 600 Number 1 Bowel Movements Physical Exam General Appearance: Alert, Oriented X3, Cooperative Skin Temp/Moisture Exam: Warm/Dry Sepsis Skin Exam (color): Normal for Ethnicity HEENT: Atraumatic, PERRLA, EOMI Neck: Supple Cardiovascular: Normal S1, Normal S2 Lungs: Clear to Auscultation Abdomen: Soft, No Tenderness Neurological: Normal Speech, Strength at 5/5 X4 Ext, Normal Tone Extremities: No Edema Assessment/Plan Assessment: 72-year-old male with past medical history of hypertension, hyperlipidemia, gout , dilated ascending to, who presented to the ER with a chief complaint of bright red blood per rectum. seeing the patient following problems: Fresh blood per rectum s/p colonoscopy: -Patient had 4 episodes of bleeding per rectum without pain. -Patient is hemodynamically stable. -Colonoscopy was done yesterday and it showed diverticulosis and a polyp that was removed by biopsy was sent. Patient will follow biopsy results as outpatient. -Overnight his H&H remained stable and this morning his hemoglobin is 11.3 -GI recommended to discharge the patient and patient was instructed to follow GI as outpatient for biopsy results. History of hypertension hyperlipidemia: -Continue metoprolol and amlodipine -Continue Lipitor History of Gout: -Continue allopurinol History of BPH: -Last a before he leaves he was given 10.5 mg Of Dutasteride for His BPH. -Patient will continue his home medication. DVT prophylaxis: Mechanical only considering his bleeding per rectum CODE STATUS: Full code Problem List: 1. GIB (gastrointestinal bleeding) Pain Ratin Pain Location: none Pain Goal: Remain pain free Pain Plan: pain pathway Tomorrow's Labs & Rationales: none Will Benitez MD 12/20/17 1201: Attending MD Review Statement Attending Statement Attending MD Statement: examined this patient, discuss w/resident/PA/IC ENGINEER, agreed w/resident/PA/IC ENGINEER, reviewed EMR data (avail), discussed with nursing, discussed with case mgmt, amended to note Attending Assessment/Plan: Patient seen and examined. Resting comfortably not in any acute distress. No issues overnight. Reports of rectal bleeding. Hemoglobin level is stable this morning. Colonoscopy reports noted and findings discussed with the patient. He verbalized understanding. He is medically stable to be discharged today I will follow-up with the GI service as an outpatient. He will follow up with the GI service with the results of his biopsy. He reports taking aspirin over-the- counter. We have advised him to hold this medication until he follows up with the results of the pathology from the gastroenterology service.
[2017-12-20 07:55] VITALS: BP 118/80
[2017-12-20] MEDS ORDERED: AVODART0.5 M1 PO (08:07)
[2017-12-20 08:49] LABS: ABSOLUTE BASOPHIL COUNT 0 /CUMM (0.0-0.2); ABSOLUTE EOSINOPHIL COUNT 0.1 /CUMM (0.0-0.7); ABSOLUTE LYMPH COUNT 1.5 /CUMM (1.2-3.4); ABSOLUTE MONOCYTE COUNT 0.4 /CUMM (0.10-0.60); HEMATOCRIT 32.7 % (42-52); MEAN CORPUSCULAR HGB 33.9 PG (27.0-31.0); MEAN CORPUSCULAR HGB CONC 34.5 G/DL (33.0-37.0); MEAN CORPUSCULAR VOLUME 98.5 FL (80.0-94.0); RED BLOOD CELL CT 3.32 /CUMM (4.70-6.10)
[2017-12-20 08:54] LABS: ABSOLUTE GRANULOCYTE CT 3.5 /CUMM (1.4-6.5); BASOPHIL % 0.4 % (0.0-2.0); EOSINOPHIL % 2.4 % (0-5); GRANULOCYTE % 63.6 % (42.2-75.2); PLATELET COUNT 193 /CUMM (130-400)
[2017-12-20 08:56] LABS: WHITE BLOOD CELL COUNT 5.5 /CUMM (4.8-10.8)
== END 2017-12-20 11:37 | DRG 379 ==
LOC: ERH 12:54 → 2NA 18:20 → ERHI 18:20 → ENRESERV 21:01 → ENTRNSPT 21:18 → EDTRNSPT 21:36 → EDTRNSPTSTS 21:36 → 2NA 21:38 → CMPTRNSPT 22:03 → 2NA 12-19 07:49 → ENPENDDIS 12-20 11:04 → 2NA 12-20 11:37
PROVIDERS: Student in an Organized Health Care Education/Training Program
PROC: 0DBF8ZX Excision of Right Large Intestine, Via Natural or Artificial Opening Endoscopic, Diagnostic (ICD-10-PCS; principal; 2017-12-19)
DX: K92.1 Melena (principal); D64.9 Anemia, unspecified; E78.5 Hyperlipidemia, unspecified; I10 Essential (primary) hypertension; K64.8 Other hemorrhoids; I95.1 Orthostatic hypotension; M10.9 Gout, unspecified; Z87.891 Personal history of nicotine dependence; Z88.1 Allergy status to other antibiotic agents; N40.0 Benign prostatic hyperplasia without lower urinary tract symptoms
CPT/HCPCS: 2NASP; 36592; 82436; 82570; 88305; 93005; 93010; 96374; J7042